=== PATIENT | female | born 1945 | race Caucasian/White ===

== ENCOUNTER 2016-04-12 05:00 | Inpatient (IN) | payer OTHER ==
[~2016-04-12] VITALS: Ht 160 cm; Wt 81.6 kg
[~2016-04-12 05:00] MED LIST: AMITRIPTYLINE H25 MG PO; AMITRIPTYLINE100 MG PO; ELAVIL50 MG PO; FLEXERIL10 MG PO; HYDROCODON-ACE1 EAC8 PO; KEFLEX500 MG PO; PREDNISONE5 MG PO; TREXALL10 MG PO
[2016-04-12 06:12] LABS: EOSINOPHIL (%) 0.4 % (0-5); HEMATOCRIT 42.1 % (36.0-46.0); IMMATURE GRANULOCYTE (%) 0.2 % (0.0-0.7); IMMATURE GRANULOCYTE COUNT 0.2 K/uL; LYMPHOCYTE COUNT 1.3 K/uL (1.0-2.8); MCH 30.3 PG (29.0-34.0); MCHC 33.5 G/DL (30.0-36.0); MCV 90.5 FL (83-99); MEAN PLAT.VOLUME 9.7 uM^3 (9.5-12.4); MONOCYTE (%) 5.2 % (3-12); MONOCYTE COUNT 0.6 K/uL (0-0.8); NEUTROPHIL (%) 81.8 % (45-76); PLATELET COUNT 278 K/uL (156-360); RBC DIS.WIDTH-CV 13.1 % (11.8-14.6); RBC DIS.WIDTH-SD 42.9 % (39-53); RED BLOOD COUNT 4.65 M/uL (3.80-5.20)
[2016-04-12 06:22] LABS: CHLORIDE 109 mEq/L (99-109); POTASSIUM 4.1 mEq/L (3.7-5.4); SODIUM 143 mEq/L (136-147)
[2016-04-12 06:23] LABS: GLUCOSE 130 mg/dL (70-99)
[2016-04-12 06:25] LABS: ANION GAP 10 MEQ/L (2-14)
[2016-04-12 06:27] LABS: GFR ESTIMATE (CALCULATED) > 59 mL/min/
[2016-04-12 06:28] LABS: UREA NITROGEN (BUN) 23 mg/dL (9-23)
[2016-04-12 09:09] LABS: ADD MIUA? YES; BILIRUBIN NEGATIVE; BLOOD LARGE; COLOR YELLOW ((YELLOW)); GLUCOSE (STRIP) NEGATIVE; KETONES NEGATIVE; LEUKOCYTES TRACE; NITRITE NEGATIVE; PROTEIN (STRIP) NEGATIVE; SPECIFIC GRAVITY 1.015 (1.000-1.030); UROBILINOGEN 0.2 MG/DL (0.2-1.0)
[2016-04-12 09:29] LABS: RED BLOOD CELLS TNTC /HPF (0-5)
[2016-04-12 09:30] LABS: EPITHELIAL CELLS 1+; MUCUS 1+; WHITE BLOOD CELLS 0-5 /HPF (0-5)
[2016-04-12 09:31] LABS: BACTERIA NONE SEEN; CASTS NONE SEEN /LPF; CRYSTALS PRESENT; UCUL ADDED? NO
[2016-04-12 09:32] LABS: CALCIUM OXALATE CRYSTALS 1+
[2016-04-12 13:00] VITALS: BP 178/87
[2016-04-12] MEDS ORDERED: HYDROCHLOROTHIA25 MG PO (13:50)
[2016-04-12] MEDS ORDERED: PREDNISONE5 MG PO (13:51)
[2016-04-12] MEDS ORDERED: ELAVIL100 MG PO (13:52)
[2016-04-12] MEDS ORDERED: ELAVIL25 MG PO (13:52)
[2016-04-12] MEDS ORDERED: HYDROCODON-ACE1 EA12 PO (13:53)
[2016-04-12] MEDS ORDERED: FLEXERIL10 MG PO (13:54)
[2016-04-12 16:00] VITALS: BP 134/74
[2016-04-12 16:20] VITALS: BP 198/84
[2016-04-12 19:39] VITALS: BP 171/72
[2016-04-12 19:57] LABS: EOSINOPHIL (%) 0 % (0-5); HEMATOCRIT 41.2 % (36.0-46.0); IMMATURE GRANULOCYTE (%) 0.4 % (0.0-0.7); LYMPHOCYTE COUNT 0.5 K/uL (1.0-2.8); MCH 29.7 PG (29.0-34.0); MCHC 32.8 G/DL (30.0-36.0); MCV 90.5 FL (83-99); MONOCYTE (%) 0.4 % (3-12); NEUTROPHIL (%) 94.8 % (45-76); NEUTROPHIL COUNT 10.2 K/uL (1.8-6.4); PLATELET COUNT 278 K/uL (156-360); RBC DIS.WIDTH-CV 13.2 % (11.8-14.6); RBC DIS.WIDTH-SD 43.3 % (39-53); RED BLOOD COUNT 4.55 M/uL (3.80-5.20); WHITE BLOOD COUNT 10.7 K/uL (4.1-10.2)
[2016-04-12 20:10] LABS: D-DIMER ELISA 0.49 mg/L FEU (< 0.57)
[2016-04-12 20:27] LABS: ALKALINE PHOSPHATASE 65 IU/L (3-129); ANION GAP 10 MEQ/L (2-14); CHLORIDE 105 MEQ/L (99-109); GFR ESTIMATE (CALCULATED) 47 mL/min/; POTASSIUM 3.8 MEQ/L (3.7-5.4); SAMPLE HEMOLYSIS CHECK 0; SAMPLE ICTERIC CHECK 0; SAMPLE LIPEMIA CHECK 0; SODIUM 137 MEQ/L (136-147); TOTAL BILIRUBIN 0.4 MG/DL (0.0-1.0); UREA NITROGEN (BUN) 23 mg/dL (9-23)
[2016-04-12 20:32] LABS: TROP-I INTERPRETATION NEGATIVE; TROPONIN-I 0.09 ng/mL (0.0-0.30)
[2016-04-12 20:38] LABS: GLUCOSE 254 mg/dL (70-99)
[2016-04-12 21:15] VITALS: BP 136/62
[2016-04-12 23:42] VITALS: BP 140/70
[2016-04-13 00:59] LABS: TROP-I INTERPRETATION POSITIVE
[2016-04-13 01:00] LABS: TROPONIN-I 1.09 ng/mL (0.0-0.30)
[2016-04-13 03:36] VITALS: BP 149/69
[2016-04-13 03:39] LABS: PROTHROMBIN TIME 10.5 (9.2-11.2); PTT 28.2 (25-32)
[2016-04-13 06:45] LABS: HEMATOCRIT 38.5 % (36.0-46.0); MCH 29.8 PG (29.0-34.0); MCV 90.4 FL (83-99); MEAN PLAT.VOLUME 10.1 uM^3 (9.5-12.4); PLATELET COUNT 262 K/uL (156-360); RBC DIS.WIDTH-CV 13.4 % (11.8-14.6); RBC DIS.WIDTH-SD 44.1 % (39-53); RED BLOOD COUNT 4.26 M/uL (3.80-5.20)
[2016-04-13 06:48] LABS: WHITE BLOOD COUNT 16.3 K/uL (4.1-10.2)
[2016-04-13 06:49] LABS: Estimated Average Glucose 114 mg/dL (70-123); HEMOGLOBIN A1c (GLYCOHEMOGLOB) 5.6 % HGB (Below 5.7)
[2016-04-13 07:03] LABS: TROP-I INTERPRETATION POSITIVE
[2016-04-13 07:04] LABS: ANION GAP 8 MEQ/L (2-14); CHLORIDE 107 MEQ/L (99-109); GFR ESTIMATE (CALCULATED) 59 mL/min/; GLUCOSE 130 mg/dL (70-99); SAMPLE HEMOLYSIS CHECK 0; SAMPLE ICTERIC CHECK 0; SAMPLE LIPEMIA CHECK 0; SODIUM 138 MEQ/L (136-147); UREA NITROGEN (BUN) 24 mg/dL (9-23)
[2016-04-13 07:07] LABS: TROPONIN-I 2.66 ng/mL (0.0-0.30)
[2016-04-13 07:35] VITALS: BP 137/63
[2016-04-13 15:32] VITALS: BP 138/63
[2016-04-13 17:52] LABS: POINT-OF-CARE USER ID NUTSLF44
[2016-04-13 20:17] VITALS: BP 144/69
[2016-04-13 21:34] LABS: POINT-OF-CARE METER ID UU13113781
[2016-04-13 23:12] VITALS: BP 132/62
[2016-04-14 04:01] VITALS: BP 140/58
[2016-04-14 07:27] LABS: TROP-I INTERPRETATION POSITIVE
[2016-04-14 07:44] LABS: TROPONIN-I 2.26 ng/mL (0.0-0.30)
[2016-04-14 08:34] LABS: EOSINOPHIL (%) 0.6 % (0-5); EOSINOPHIL COUNT 0.1 K/uL (0-0.3); HEMATOCRIT 39.1 % (36.0-46.0); IMMATURE GRANULOCYTE (%) 0.2 % (0.0-0.7); LYMPHOCYTE COUNT 3.7 K/uL (1.0-2.8); MCH 30.5 PG (29.0-34.0); MCHC 33.2 G/DL (30.0-36.0); MCV 91.8 FL (83-99); MEAN PLAT.VOLUME 10.7 uM^3 (9.5-12.4); MONOCYTE (%) 7.3 % (3-12); MONOCYTE COUNT 0.8 K/uL (0-0.8); NEUTROPHIL (%) 57.3 % (45-76); NEUTROPHIL COUNT 6.2 K/uL (1.8-6.4); PLATELET COUNT 249 K/uL (156-360); RBC DIS.WIDTH-CV 13.8 % (11.8-14.6); RBC DIS.WIDTH-SD 45.2 % (39-53); RED BLOOD COUNT 4.26 M/uL (3.80-5.20)
[2016-04-14 08:35] LABS: WHITE BLOOD COUNT 10.8 K/uL (4.1-10.2)
[2016-04-14 08:55] VITALS: BP 141/65
[2016-04-14 11:29] LABS: POINT-OF-CARE METER ID UU14174216; POINT-OF-CARE USER ID ENVKC36
[2016-04-14 11:30] VITALS: BP 128/58
[2016-04-14] MEDS ORDERED: METHOTREXATE2.5 MG PO (11:33)
[2016-04-14] MEDS ORDERED: HYDROCHLOROTHIA25 MG PO (11:48)
[2016-04-14 15:00] VITALS: BP 127/58
[2016-04-14 16:54] LABS: POINT-OF-CARE METER ID UU13113698
[2016-04-14 19:20] VITALS: BP 134/60
[2016-04-14 23:00] VITALS: BP 118/55
[2016-04-15 03:00] VITALS: BP 141/62
[2016-04-15 07:00] LABS: EOSINOPHIL (%) 1.1 % (0-5); EOSINOPHIL COUNT 0.1 K/uL (0-0.3); HEMATOCRIT 39.6 % (36.0-46.0); IMMATURE GRANULOCYTE (%) 0.3 % (0.0-0.7); MCHC 32.8 G/DL (30.0-36.0); MCV 91.5 FL (83-99); MEAN PLAT.VOLUME 10.7 uM^3 (9.5-12.4); MONOCYTE (%) 10.7 % (3-12); MONOCYTE COUNT 1.1 K/uL (0-0.8); NEUTROPHIL COUNT 5.3 K/uL (1.8-6.4); PLATELET COUNT 247 K/uL (156-360); RBC DIS.WIDTH-CV 13.5 % (11.8-14.6); RBC DIS.WIDTH-SD 45.1 % (39-53); RED BLOOD COUNT 4.33 M/uL (3.80-5.20); WHITE BLOOD COUNT 10.7 K/uL (4.1-10.2)
[2016-04-15 07:17] VITALS: BP 169/74
[2016-04-15 07:30] LABS: ANION GAP 8 MEQ/L (2-14); CHLORIDE 105 MEQ/L (99-109); GFR ESTIMATE (CALCULATED) > 59 mL/min/; GLUCOSE 85 mg/dL (70-99); POTASSIUM 4.1 MEQ/L (3.7-5.4); SAMPLE HEMOLYSIS CHECK 0; SAMPLE ICTERIC CHECK 0; SAMPLE LIPEMIA CHECK 0; SODIUM 141 MEQ/L (136-147); UREA NITROGEN (BUN) 24 mg/dL (9-23)
[2016-04-15] MEDS ORDERED: CLOPIDOGREL75 MG PO (09:42)
[2016-04-15] MEDS ORDERED: PRAVASTATIN SOD40 MG PO (09:42)
[2016-04-15] MEDS ORDERED: TAMSULOSIN HCL0.4 MG PO (09:42)
[2016-04-15] MEDS ORDERED: LOPRESSOR25 MG PO (09:42)
== END 2016-04-15 10:50 | disposition home or self-care (01) | DRG 281 ==
LOC: EME 05:00 → EDOF 11:17 → 5WEST 12:42 → 4EAST 04-13 15:41
PROVIDERS: Emergency Medicine; Internal Medicine; Internal Medicine Cardiovascular Disease; Physician Assistant Medical
DX: I21.4 Non-ST elevation (NSTEMI) myocardial infarction (principal); N20.1 Calculus of ureter; R31.9 Hematuria, unspecified; G43.909 Migraine, unspecified, not intractable, without status migrainosus; M06.9 Rheumatoid arthritis, unspecified; G89.29 Other chronic pain; Z88.6 Allergy status to analgesic agent; E66.09 Other obesity due to excess calories; I16.0 Hypertensive urgency; M54.9 Dorsalgia, unspecified; R07.9 Chest pain, unspecified; N23 Unspecified renal colic; R79.89 Other specified abnormal findings of blood chemistry; F32.9 Major depressive disorder, single episode, unspecified; R94.31 Abnormal electrocardiogram [ECG] [EKG]; R00.0 Tachycardia, unspecified; I24.9 Acute ischemic heart disease, unspecified
CPT/HCPCS: 71010; 74000; 74176; 80048; 80053; 81003; 82948; 83036; 83605; 84484; 85025; 85025 91; 85027; 85347; 85379; 85610; 85730; 87040; 93005; 93306; 99281; 99285; C1760; C1769; C1887; C1894; J0360; J0696; J1170; J1200; J1644; J1885; J2250; J2270; J2405; J2765; J2930; J3010; J7030; J7040; J7050; J7512; S0028

== ENCOUNTER 2017-02-01 08:33 | Emergency (ER) | payer OTHER ==
[~2017-02-01] VITALS: Ht 160 cm; Wt 78.4 kg
[~2017-02-01 08:33] MED LIST changes: +CLOPIDOGREL75 MG PO; +ELAVIL100 MG PO; +ELAVIL25 MG PO; +HYDROCHLOROTHIA25 MG PO; +HYDROCODON-ACE1 EA12 PO; +LOPRESSOR25 MG PO; +METHOTREXATE2.5 MG PO; +PRAVASTATIN SOD40 MG PO; +TAMSULOSIN HCL0.4 MG PO
[2017-02-01 08:49] VITALS: BP 190/88
[2017-02-01] MEDS ORDERED: PERCOCET 5/31 TABLET PO (11:51)
== END 2017-02-01 12:07 | disposition home or self-care (01) ==
LOC: EME 08:33
DX: M25.512 Pain in left shoulder (principal); M06.9 Rheumatoid arthritis, unspecified
CPT/HCPCS: 72040; 73030; 93005; 99281; 99284